=== PATIENT | male | born 1960 | race Caucasian/White ===

== ENCOUNTER 2025-03-31 15:08 | Emergency (ER) | payer MEDICAID, SELFPAY ==
[2025-03-31] VITALS (14 sets, daily range): BP systolic 63–109; BP diastolic 40–62; PULSE 39–73; RESP 11–20; TEMP -17.7–34; O2SAT 94–100; BMI 43.0
--- NOTE | 2025-03-31 | ECG_ITS ---
Test Reason : unresponsive Blood Pressure : */* mmHG Vent. Rate : 42 BPM Atrial Rate : 42 BPM P-R Int : 134 ms QRS Dur : 124 ms QT Int : 408 ms P-R-T Axes : * -77 55 degrees QTcB Int : 340 ms Junctional rhythm with occasional Premature ventricular complexes Left axis deviation Right bundle branch block Abnormal ECG No previous ECGs available Referred By: Generic ED Physician Electronically Signed By: Danny Hennessy
--- NOTE | ~2025-03-31 | XR_ITS ---
EXAMINATION: XR CHEST CLINICAL INFORMATION: post intubation COMPARISON: None available. TECHNIQUE: Frontal view of the chest was obtained. FINDINGS: ET tube is in the midthoracic trachea. NG tube extends to the GE junction. The side port is in the fundus. Lung volumes are low. XR/XR chest 1V IMPRESSION: ET tube is in the midthoracic trachea. NG tube in the stomach. The side-port is just distal to the GE junction and could be inserted further. Electronically signed by: Milan Stout MD 03/31/2025 04:24 PM EDT
[2025-03-31 15:30] LABS: Glucose, Whole Blood 188 mg/dL (60-115)
[2025-03-31] MEDS: Ketamine HCl/NS 100 MG/10 ML SYRINGE 50 MG IVPUSH (15:30)
--- NOTE | 2025-03-31 15:30 | PC.NURSE ---
plan to intubate pt is unresponsive, narcan 2mg iv did not work at all, yony in the 40-30 hr pacer pads applied 50mg of ketamine given followed by 100 mg of succinynlycholine intubated at 1532 with a7.5et tube and 26 at the lip, positive color change on the color metric
--- NOTE | 2025-03-31 15:32 | PC.NURSE ---
atropine 1mg given hr 37
--- NOTE | 2025-03-31 15:33 | PC.NURSE ---
atropine 1mg iv given hr 37
--- NOTE | 2025-03-31 15:34 | PC.NURSE ---
epinephrine 1mg iv given
--- NOTE | 2025-03-31 15:37 | PC.NURSE ---
epinephrine 1mg iv given
--- NOTE | 2025-03-31 15:39 | PC.NURSE ---
pt given epinephrine 1mg iv hr 40 108/52
--- NOTE | 2025-03-31 15:40 | PC.NURSE ---
pt did receive two full ns litters wide open, total of 2000ml
--- NOTE | 2025-03-31 15:44 | PC.NURSE ---
dr raya started to pace the patient
[2025-03-31] MEDS: Ketamine HCl/NS 100 MG/10 ML SYRINGE 25 MG IVPUSH (15:57)
--- NOTE | 2025-03-31 16:03 | PC.NURSE ---
Provider authorized max dose on levophed at 1 mcg/kg/min. Verbal read back to provider and provider confirmed.
[2025-03-31 16:12] LABS: Hematocrit 40.2 % (42.0-52.0); Hemoglobin 14.3 g/dl (14.0-18.0); Imm Gran Abs Auto 0.39 X10*3/uL (0.00-0.03); Imm Gran Pct Auto 1.5 % (0.0-0.4); MANUAL DIFF FLAG SCAN; Mean Corpuscular HGB Conc 35.6 g/dl (31.0-36.0); Mean Corpuscular Hemoglobin 31.2 pg (27.0-33.0); Mean Corpuscular Volume 87.6 fL (80.0-98.0); NRBC Abs Auto 0.000 X10*3/uL (0.0-0.012); NRBC Pct Auto 0.0 /100WBC (0.0-0.2); Platelet Count 337 X10*3/uL (160-400); Red Blood Count 4.59 X10*6/uL (4.60-5.80); SCAN SMEAR FLAG 1; White Blood Count 25.2 X10*3/uL (4.8-10.8)
--- NOTE | 2025-03-31 16:12 | CA_ITS ---
Transthoracic Echocardiogram Patient (Last, First, Middle): Froy Simms, Gender: Male Date of : 1960 Age: 64 Procedure Date: 03/31/2025 Procedure Type: Transthoracic Echocardiogram Location: ER Height: 177.8 cm Weight: 135.63 kg BSA: 2.48 m2 Heart Rate: bpm BP: 88 / 38 mmHg Technical Healthcare Consultant: BULL Referring MD: Warren Hamilton Symptoms: unresponsive Study Quality: Definity not given/open IV site not available ECG Rhythm: Paced Conclusions: - Normal left ventricular size and systolic function. There is mildly increased left ventricular wall thickness. The visually estimated ejection fraction is between 55-60%. - Diastolic function is indeterminate on the basis of available data. - Normal right ventricular cavity size. There is low normal right ventricular systolic function. - There is mild aortic valve stenosis. - There is mild dilatation of the ascending aorta measuring 3.70 cm. Findings Procedure Information The quality of the study was technically difficult. The study quality is limited by patients body habitus, the presence of a ventilator, and external pacing wires. Left Ventricle Normal left ventricular size and systolic function. There is mildly increased left ventricular wall thickness. The visually estimated ejection fraction is between 55-60%. Regional wall motion abnormalities can not be excluded due to suboptimal endocardial definition. Diastolic function is indeterminate on the basis of available data. Right Ventricle Normal right ventricular cavity size. There is low normal right ventricular systolic function. Atria The left atrium is mildly dilated. The right atrium is normal in size. Aortic Valve There is a normal trileaflet aortic valve. There is mild aortic valve stenosis. There is no aortic valve regurgitation. Mitral Valve The mitral valve was not well visualized. There is no mitral valve regurgitation. There is no mitral valve stenosis. Pulmonic Valve The pulmonic valve was not well visualized. Tricuspid Valve Likely normal tricuspid valve structure and function. Tricuspid regurgitation envelope is inadequate for calculation of right ventricular systolic pressure. Indeterminate right atrial pressure. Great Vessels There is mild dilatation of the ascending aorta measuring 3.70 cm. The visualized portions of the pulmonary artery and branches are normal. Venous The inferior vena cava is dilated and does not collapse with inspiration. Pericardium/Pleural Prominent epicardial adipose tissue noted. There is no evidence of pericardial effusion. Prior Study Comparison No prior study available for comparison. Measurements 2D Linear Measurements IVSd: 0.94 0.6-0.9/0.6-1.0 cm LVIDd: 6.02 3.9-5.3/4.2-5.9 cm LVIDd Index: 2.43 2.4-3.2/2.2-3.1 cm/m2 LVIDs: 5.11 2.0-3.6 cm LVPWd: 0.97 0.7-1.1 cm LA Diam: 3.90 2.7-3.8/3.0-4.0 cm LAIDs Index: 1.57 1.5-2.3 cm/m2 LV Mass: 291.73 67-162/88-224 g LV Mass Index: 117.63 43-95/49-115 g/m2 LVOT Diam: 2.30 3.0+(-)1.3 cm Mitral Valve MV Pk E: 1.11 MV PK A: 0.81 MV Decel Time: 259.00 E/A: 1.40 E'Lateral: 12.10 E/E' Lat: 9.20 PHT: 76.00 MVA PHT: 2.89 Decel Craven: 4.27 Aortic Valve AoV Pk Miller: 2.58 AoV Mn Miller: 1.55 AoV VTI: 0.37 AoV Pk Grad: 27.00 Aov Mn Grad: 12.00 BERENICE Cont.VTI: 3.40 LVOT LVOT Pk Miller: 1.94 LVOT Mn Miller: 1.21 LVOT VTI: 0.30 LVOT Pk Grad: 15.00 LVOT Mn Grad: 8.00 LVOT Diam: 2.30 LVOT Area: 4.15 Diastolic Function MV Pk E: 1.11 MV Pk A: 0.81 E/A: 1.40 E' Laterial: 12.10 E/E' Lat: 9.20 Right Ventricle TAPSE (mm): 18.30 Tricuspid Valve RA Press: 15.00 Great Vessels Aorta Sinus of Valsalva: 3.70 2.0-3.5 cm Ao Asc: 3.70 2.1-3.4 cm Pulmonary Valve PV Pk Miller: 1.73 Peak PV Grad: 12.00 Updated in Other Vendor System with Status of Final Danny Hennessy MD electronically signed on 04/01/2025 11:59:13 AM with status of Final
[2025-03-31 16:13] LABS: Ammonia 32 umol/L (13-55)
[2025-03-31] MEDS: Calcium Gluconate/NaCl,Iso-Osm 2 GM/100 ML PLAST..BAG IV (16:14)
--- NOTE | 2025-03-31 16:15 | MHC.EDTECH ---
Addendum entered by Aida Yen 03/31/25 17:45: rTistin Hinton- [phone] Original Note: Daughter Norma- [phone]
[2025-03-31 16:17] LABS: VBG HCO3 16 mmol/L (22-26); VBG O2 % Saturation 97.0 %
[2025-03-31 16:19] LABS: INTERNATIONAL NORM RATIO 1.0 (0.9-1.1); Prothrombin Time 12.0 SEC (10.9-12.4)
[2025-03-31] MEDS: DOPamine HCL/D5W 400 MG/250 ML PLAST..BAG 25.48 MG IVCONT (16:21)
[2025-03-31 16:22] LABS: Alanine Aminotransferase 32 U/L (0-40); Albumin Level 3.8 g/dL (3.5-5.0); Alkaline Phosphatase 88 U/L (39-117); Anion Gap 18 (12-20); Aspartate Amino Transferase 36 U/L (5-37); Blood Urea Nitrogen 19 mg/dL (9-16); Calcium 7.8 mg/dL (8.4-10.2); Carbon Dioxide 17 mmol/L (22-29); Chloride 108 mmol/L (96-108); Creatinine Clr Calc Pharmacy 32.1; Estimated Glomerular Filt Rate 19; Potassium 3.8 mmol/L (3.3-5.1); Sodium 139 mmol/L (135-145); Total Protein 6.5 g/dL (6.5-8.0)
[2025-03-31 16:23] LABS: Lymphocytes Absolute Auto 6.1 X10*3/uL (1.2-4.9)
[2025-03-31 16:23] LABS: Venous Blood Gas Refer to POC result
[2025-03-31 16:26] LABS: B Type Natriuretic Peptide 170 pg/mL (<100)
[2025-03-31 16:29] LABS: Troponin-I High Sensitivity 16.7 ng/L (<3.5-35.0)
--- NOTE | 2025-03-31 16:32 | ED.GENADULT ---
HPI - General Adult General Chief complaint: Altered Mental Status Stated complaint: FOUND UNCONS PER EMS Time Seen by Provider: 03/31/25 15:20 Source: family ( @phone # [phone].), EMS and old records reviewed Mode of arrival: EMS Limitations: altered mental status History of Present Illness ED Provider: DR. Hamilton HPI narrative: This is a 64-year-old male brought in by EMS after was found by his home health aide unresponsive around noon time, unknown last time known well, patient is non historian, no old records available in our system, patient was transported by EMS after was found bradycardic and hypotensive and unresponsive. Patient immediately was moved to room 4, placed on rigging loft repairer, EKG, labs, initial evaluation of the patient who is limited due to unresponsiveness, airway was secured with intubation, found to be severely bradycardic temporary respond to atropine and epinephrine, patient therefore required external pacing was able to piece the patient at 70 beats per minute, received IV fluids without significant improvement of blood pressure therefore patient was started on Levophed that was maxed out and require adding dopamine drip. called me over the phone reported that patient usually go to [facility], with history of extensive coronary artery disease require 3 stents in the back, declined any issue with drug use. Lost she spoke with him was yesterday and he had no complaints. Past medical history was reviewed from [facility] system patient with past medical history significant for HTN, HLD, morbid obesity, tobacco dependence, stent in left circumferential and RCA. Related Data Allergies Allergy/AdvReac Type Severity Reaction Status Date / Time No Known Allergies Allergy Verified 03/31/25 15:41 Review of Systems Review of Systems: Yes Unobtainable due to mental status [facility] Past Medical History Reminder: HTN, LDH, morbid obesity, tobacco dependent, CAD, s/p multiple stents at [facility]. Onset Time:: 17:00 Social History Social History Do you have a plan to hurt others: No Plan Physical Exam ED Vital Signs: Vital Signs - 24 hr 03/31/25 15:15 03/31/25 15:37 03/31/25 15:44 Temperature 0 F L Pulse Rate 39 L 41 L 53 Respiratory Rate 11 L Blood Pressure 106/50 L 109/54 L 96/46 L Pulse Oximetry 100 Oxygen Delivery Method Mechanical Ventilation Oxygen Flow Rate Fraction of Inspired Oxygen 03/31/25 15:48 03/31/25 15:53 03/31/25 16:03 Temperature Pulse Rate 72 72 71 Respiratory Rate Blood Pressure 83/40 L 72/40 L 63/40 L Pulse Oximetry Oxygen Delivery Method Oxygen Flow Rate Fraction of Inspired Oxygen 03/31/25 16:21 03/31/25 16:21 03/31/25 16:22 Temperature Pulse Rate 72 72 Respiratory Rate Blood Pressure 99/49 L 99/49 L Pulse Oximetry 100 Oxygen Delivery Method Mechanical Ventilation Oxygen Flow Rate 100 Fraction of Inspired Oxygen 100 03/31/25 16:30 03/31/25 16:41 03/31/25 16:53 Temperature Pulse Rate 72 72 58 Respiratory Rate Blood Pressure 88/47 L 78/46 L 69/42 L Pulse Oximetry Oxygen Delivery Method Oxygen Flow Rate Fraction of Inspired Oxygen 03/31/25 17:01 03/31/25 17:01 03/31/25 17:04 Temperature Pulse Rate 63 63 71 Respiratory Rate Blood Pressure 76/47 L 76/47 L 87/42 L Pulse Oximetry Oxygen Delivery Method Oxygen Flow Rate Fraction of Inspired Oxygen 03/31/25 18:15 03/31/25 18:15 Temperature Pulse Rate 72 72 Respiratory Rate Blood Pressure 90/40 L 90/40 L Pulse Oximetry Oxygen Delivery Method Oxygen Flow Rate Fraction of Inspired Oxygen BMI result Body Mass Index 43.0 Course Reevaluation(s) Reevaluation #1: Critically ill patient came in unresponsive. 1. Airway secured, patient is intubated please refer to intubation note. 2. Bradycardia/hypotension patient require external pacing to support heart rate and blood pressure after not responding to atropine multiple doses/epinephrine. 3. Require multiple pressor to support his blood pressure. 4. Empirical ceftriaxone coverage. 5. Case discussed with Dr. Boswell, echocardiogram was order at the bedside. 6. Consider transferred to [facility] case discussed with Dr. Lopes who accepted the patient to CCU. 7. Patient should get head CT to assess for intracranial pathology nevertheless, patient is too unstable to be transported to the CT. 8. Arranging for critical care ambulance transportation to [facility]. 9. A trial of IV Narcan administration with no change of the mental status. 10. Severely metabolic acidosis with low bicarb will give 1 amp bicarb. Time: 17:01 Medications Administered Generic Name Dose Route Start Last Admin Trade Name Freq PRN Reason Stop Dose Admin Dopamine HCl/Dextrose 400 mg in 250 mls @ 0 mls/hr 03/31/25 16:15 03/31/25 18:15 Dopamine Hcl/D5w IVCONT 0 mcg/kg/min .Q0M VALENTE 0 mls/hr Protocol Titration Per Protocol Norepinephrine Bitartrate 8 mg in 250 mls @ 0 mls/hr 03/31/25 17:00 03/31/25 18:15 Levophed IVCONT Infused .Q0M VALENTE Titration Protocol Per Protocol Discontinued Medications Generic Name Dose Route Start Last Admin Trade Name Freq PRN Reason Stop Dose Admin Atropine Sulfate 1 mg 03/31/25 17:15 03/31/25 15:16 Atropine Sulfate 1 Mg/10 Ml Syringe IVPUSH 03/31/25 17:16 1 mg ONCE ONE Administration Ceftriaxone Sodium 1 gm 03/31/25 16:35 03/31/25 16:44 Ceftriaxone Sodium 1 Gm Vial IVPUSH 03/31/25 16:36 1 gm ONCE ONE Administration Epinephrine 1 mg 03/31/25 17:15 03/31/25 15:37 Epinephrine 1 Mg/10 Ml Syringe IVPUSH 03/31/25 17:16 1 mg ONCE ONE Administration Epinephrine 1 mg 03/31/25 17:15 03/31/25 15:39 Epinephrine 1 Mg/10 Ml Syringe IVPUSH 03/31/25 17:16 1 mg ONCE ONE Administration Epinephrine 1 mg 03/31/25 17:15 03/31/25 15:34 Epinephrine 1 Mg/10 Ml Syringe IVPUSH 03/31/25 17:16 1 mg ONCE ONE Administration Calcium Gluconate 2 gm in 100 mls @ 50 mls/hr 03/31/25 16:05 03/31/25 18:15 Calcium Gluconate IV 03/31/25 18:04 Infused ONCE ONE Infusion Ketamine HCl 50 mg 03/31/25 17:16 03/31/25 15:30 Ketamine Hcl/Ns 100 Mg/10 Ml Syringe IVPUSH 03/31/25 17:17 50 mg ONCE ONE Administration Ketamine HCl 25 mg 03/31/25 17:18 03/31/25 15:57 Ketamine Hcl/Ns 100 Mg/10 Ml Syringe IVPUSH 03/31/25 17:19 25 mg ONCE ONE Administration Sodium Bicarbonate 50 meq 03/31/25 17:20 03/31/25 17:22 Sodium Bicarbonate 8.4% 50 Meq/50 Ml Syringe IVPUSH 03/31/25 17:21 50 meq ONCE ONE Administration Succinylcholine Chloride 100 mg 03/31/25 17:15 03/31/25 15:30 Succinylcholine Chloride 200 Mg/10 Ml Vial IVPUSH 03/31/25 17:16 100 mg ONCE ONE Administration Procedures Intubation Intubation Type:: Endotracheal Tube Insertion Intubation Date:: 03/31/25 Time out performed: Yes sedative: Ketamine Mg Given: 25 paralytic: Succinylcholine Mg Given: 100 Laryngoscope: Sanchez ET Tube Size: 7.5 ET Tube Uncuffed: No Tube Secured Depth (cm): 22 Tube Secured Location: lips Tube Placement Confirmation: visualized tube passing through cords, equal breath sounds bilaterally, no breath sounds over epigastrium and confirmation by capnometry Patient Tolerated Procedure: well Intubation Complications: none Medical Decision Making Differential Diagnosis Differential Diagnoses: The differential diagnosis associated with the presentation includes (Cardiogenic shock, severe bradycardia,AV conduction pathology, electrolyte derangement, infection, drug overuse, ACS.) Admission/Observation Consideration of admission/observation: Escalation of care including admission/observation considered Consult Healthcare Provider Management of the patient was discussed with: Burglar Alarm Operator (Dr. Boswell) Lab Data MDM Lab Attestation statement: I reviewed the patient's lab results. 03/31/25 15:54 03/31/25 15:54 Labs: Lab Results 03/31/25 03/31/25 03/31/25 Range/Units 15:16 15:54 16:06 WBC 25.2 H (4.8-10.8) X10*3/uL RBC 4.59 L (4.60-5.80) X10*6/uL Hgb 14.3 (14.0-18.0) g/dl Hct 40.2 L (42.0-52.0) % MCV 87.6 (80.0-98.0) fL MCH 31.2 (27.0-33.0) pg MCHC 35.6 (31.0-36.0) g/dl RDW 14.4 (11.0-16.0) % Plt Count 337 (160-400) X10*3/uL MPV 10.4 (9.4-12.4) fL Immature Gran % (Auto) 1.5 H (0.0-0.4) % Neut % (Auto) 64.0 (45-73) % Lymph % (Auto) 24.4 (20-40) % Glascock % (Auto) 9.6 (2-11) % Eos % (Auto) 0.1 (0-4) % Baso % (Auto) 0.4 (0-2) % Lymph # (Auto) 6.1 H (1.2-4.9) X10*3/uL Glascock # (Auto) 2.4 H (0.1-1.2) X10*3/uL Eos # (Auto) 0.0 (0.0-0.4) X10*3/uL Baso # (Auto) 0.1 (0.0-0.2) X10*3/uL Abs Immat Gran (auto) 0.39 H (0.00-0.03) X10*3/uL Absolute Neuts (auto) 16.1 H (2.0-8.3) x10*3/uL Absolute Nucleated RBC 0.000 (0.0-0.012) X10*3/uL Nucleated RBC % (auto) 0.0 (0.0-0.2) /100WBC Smear Tech's Comments VERIFIED PT 12.0 (10.9-12.4) SEC INR 1.0 (0.9-1.1) VBG pH 7.25 L (7.32-7.43) VBG pCO2 36 mmHg VBG pO2 93 mmHg VBG HCO3 16 L (22-26) mmol/L VBG O2 Saturation 97.0 % VBG Base Excess -10.0 mmol/L Sodium 139 (135-145) mmol/L Potassium 3.8 (3.3-5.1) mmol/L Chloride 108 (96-108) mmol/L Carbon Dioxide 17 L (22-29) mmol/L Anion Gap 18 (12-20) BUN 19 H (9-16) mg/dL Creatinine 3.31 H (0.5-1.4) mg/dL Estim Creat Clear Calc 32.1 Estimated GFR 19 POC Glucose 188 H (60-115) mg/dL Random Glucose 227 H (60-115) mg/dL Lactic Acid 5.7 H* (0.5-2.0) mmol/L Calcium 7.8 L (8.4-10.2) mg/dL Total Bilirubin 0.5 (0.0-1.0) mg/dL AST 36 (5-37) U/L ALT 32 (0-40) U/L Alkaline Phosphatase 88 (39-117) U/L Ammonia 32 (13-55) umol/L Troponin I High Sens 16.7 (<3.5-35.0) ng/L B-Natriuretic Peptide 170 H (<100) pg/mL Total Protein 6.5 (6.5-8.0) g/dL Albumin 3.8 (3.5-5.0) g/dL Independent Interpretation I performed an independent interpretation of an: EKG and Plain X-Ray (Chest:ET tube is in the midthoracic trachea. NG tube in the stomach. The side-port is just distal to the GE junction and could be inserted further.) Radiology Impression Discussion of test interpretation with radiology: I have reviewed the radiologist's reading. Critical Care Time Critical Care Time Critical Care Time: Yes Total Critical Care Time: 80 Attestation: The patient was critically ill with a high probability of imminent or life-threatening deterioration. I spent greater than 30 minutes of discontinuous time evaluating the patient, delivering critical care at the bedside, discussing evaluating data with consultants. Critical care time does not include time spent performing separately billable procedures or teaching. Time spent performing critical care was 80 minutes. Discharge Plan Discharge Clinical Impression: Unresponsive, Hypotension, Bradycardia Patient Disposition: [facility] Transfer Details: CCU
--- NOTE | 2025-03-31 16:33 | PC.RT ---
RTs were called to ED for an unresponsive PT with bradycardia to assist in intubation. PT was with other ED staff on arrival. RTs set up glidescope and BVM for intubation. During intubation, RT noted that the PTs airway was swollen and narrowed. Intubation was successful, bilateral chest movement noted, condensation in tubing noted, positive colormetric noted. PT was attached to vent on ACPC mode. 7.5 tube 26 @ lip, confirmed with x-ray.
--- NOTE | 2025-03-31 16:55 | PC.NURSE ---
Land cath in, draining 140 ml drained from land
--- NOTE | 2025-03-31 17:01 | PC.NURSE ---
bp unstable not responding to protocol increase in the dopamine of 5mcg/kg/min instead going up by 10mcg'kg/min md falcon
--- NOTE | 2025-03-31 17:38 | PC.NURSE ---
Critical care unit on the ground, at bedside giving handoff
--- NOTE | 2025-03-31 17:51 | PC.NURSE ---
Bag of norepinephrine provided to EMS/aircrew per request d/t drip running out soon.
[2025-03-31 17:58] LABS: Reflex Lactate? Lactic Acid Added
--- NOTE | 2025-03-31 17:59 | PC.NURSE ---
report given Roselia Arora at [facility]
--- NOTE | 2025-03-31 18:07 | PC.NURSE ---
pt received ketamine 25mg from the rsi kit and Saran hi witnessed this rn wasting the other 25mg
--- NOTE | 2025-03-31 18:08 | PC.RT ---
Pt taken off vent by critical care. RT was called after pt was taken off. RT found pt off [facility] vent and on critical care vent. Pt appeared comfortable, VSS. Care transferred to critical care.
--- NOTE | 2025-03-31 18:19 | PC.NURSE ---
Addendum entered by Saran Taylor 03/31/25 18:20: pharmacy notified Original Note: additional bag of dopamine sent w pt, after CCT lines primed, medic concerned for amount of meds left for transport
[2025-03-31 18:57] LABS: Glucose, Whole Blood 330 mg/dL (60-115)
== END 2025-03-31 18:52 | disposition short-term general hospital (02) ==
PROVIDERS: Emergency Provider Emergency Medicine; PCP Family Medicine
DX: R40.4 Transient alteration of awareness (principal); I95.9 Hypotension, unspecified; R00.1 Bradycardia, unspecified; I25.10 Atherosclerotic heart disease of native coronary artery without angina pectoris; E87.20 Acidosis, unspecified; Z72.0 Tobacco use; I10 Essential (primary) hypertension; E78.5 Hyperlipidemia, unspecified; E66.01 Morbid (severe) obesity due to excess calories; Z68.41 Body mass index [BMI] 40.0-44.9, adult
CPT/HCPCS: 31500; 36415; 71045; 80053; 82140; 82803; 82947; 83605; 83880; 84484; 85025; 85610; 87040; 93005; 93306; 94002; 96361; 96365; 96366; 96375; 99285; 99291; 99292; J0168; J0330; J0461; J0613; J0696; J1265; J2312; Q9957

== ENCOUNTER → 2025-03-31 16:00 | Outpatient (BNV) | payer BC, SELFPAY | PROVIDERS: Emergency Provider Emergency Medicine; PCP Family Medicine; Visit Provider Radiology Diagnostic Radiology | DX: R06.00 Dyspnea, unspecified (principal) | CPT/HCPCS: 71045 ==

== ENCOUNTER → 2025-03-31 16:12 | Outpatient (BNV) | payer MEDICAID, SELFPAY | PROVIDERS: Emergency Provider Emergency Medicine; PCP Family Medicine; Visit Provider Internal Medicine Cardiovascular Disease | DX: I49.3 Ventricular premature depolarization (principal); I45.10 Unspecified right bundle-branch block | CPT/HCPCS: 93010 ==